=== PATIENT | male | born 1960 | race Caucasian/White ===

== ENCOUNTER 2019-12-28 12:45 | Day surgery (SDC) | payer BC, OTHER ==
[2019-12-25 14:11] LABS: HEMATOCRIT 41.6 % (42.0-54.0); HEMOGLOBIN 13.5 g/dL (13.5-17.5); MCH 30.7 pg (26.0-34.0); MCHC 32.5 g/dL (31.0-37.0); MCV 94.5 fL (80.0-100.0); RBC 4.4 10x6/uL (4.20-6.10); RDW 14.2 % (11.5-14.5); WBC 6.6 10x3/uL (4.8-10.8)
[~2019-12-28] VITALS: Ht 190.5 cm; Wt 133.4 kg
[~2019-12-28 12:45] MED LIST: COREG6.25 MG PO; LEXAPRO10 MG PO; LISINOPRIL10 MG PO; OXYCONTIN10 MG PO; TORADOL10 MG PO
[2019-12-28 13:29] VITALS: BP 147/91; Ht 190.5 cm; Wt 133.4 kg
[2019-12-28] MEDS ORDERED: OXYCODONE HCL5 M1 PO (18:07)
--- NOTE | 2019-12-28 18:15 | NUR ---
1812 REVEIVED REPORT FROM Los MACKAY RN TAKING OVER CARE
--- NOTE | 2019-12-28 20:25 | NUR ---
1999 IV REMOVED AND INSTRUCTIONS GIVEN AND REVIEWED WITH PT, OSIRIS FAJARDO ON AMARJIT ORDERED WITH INSTRUCTIONS. PAIN AND NAUSEA TOLERABLE
--- NOTE | 2019-12-29 09:13 | OP ---
PATIENT NAME: RUPERTO YIP JR MEDICAL RECORD: [id number] :60 LOCATION:[facility] ADMISSION DATE: SURGEON: CHRISTOPHER DOOLEY DO DATE OF OPERATION: 12/28/2019 PROCEDURE PERFORMED: Left knee arthroscopy with partial medial meniscectomy, abrasion chondroplasty of patella. 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 INDICATIONS: Mr.Otis Yip is a 59-year-old male who presented to my office with an MRI, showing that both findings on x-ray, he did not appear to have much arthritis as he had a good joint space noted, but he had more meniscal symptoms. I informed him that I could help him with those, ____ meniscus, but he may need further surgery. He is also aware of risks of infection, bleeding, damage to nerves and vessels in the area and continued pain and recurrence of the meniscal tear. He is aware of all that and signed the consent. SURGEON: Christopher Dooley DO DESCRIPTION OF THE PROCEDURE: The patient was taken to the operative suite, laid in supine position, given general anesthetic, and LMA was placed. The left lower extremity was then prepped and draped in sterile fashion. Timeout was performed. Everyone was agreeance with correct side, site, patient and procedure. We then began by making the lateral portal with an 11-blade scalpel. Trocar was entered in the joint. The camera was entered into the joint. There is quite a bit of inflammation in there. The tissue was quite red in color. I did wash it a little and I inspected the suprapatellar area and there were no loose bodies seen. There is some cartilage floating around in the medial and lateral gutters. These were flushed out. I then looked to the medial compartment and established a medial portal with an 18-gauge spinal needle and an 11-blade scalpel and the trocar was brought in and probed. Probed the medial meniscus, it was torn, torn in the posterior horn. A biter and shaver was then brought in to trim it out to a stable point. I then inspected the ACL and it was again super inflamed as well as the rest of the soft tissue in the area and washed it. I then got the probe and parked it in the posterior lateral area of the notch and [id number] the knee, viewed the lateral meniscus and lateral cartilage. The lateral compartment was in good shape. I then brought the knee into an extension and brought in the shaver through the medial portal and an abrasion chondroplasty on the patella. This was also performed of the medial femoral condyle, excising any cartilage that was loose. I then turned the water off and suctioned. All the excess fluid was removed from the knee. I then closed the portal sites with 4-0 Monocryl in inverted interrupted fashion. Steri-Strips, Adaptic, 4 x 4's, ABD, Webril and Brett wrap were then placed on the knee. He was then awakened and taken to recovery in stable condition. ESTIMATED BLOOD LOSS: Minimal. COMPLICATIONS: None. TRANSINT:[id number] Voice Confirmation ID: [id number] DOCUMENT ID: [id number] OPERATIVE REPORT [id number] RUPERTO YIP JR, MICHAEL D, DO at 0913 CC: [id number] DICTATION DATE: 12/28/19 180 [employer]: 12/29/19 0124 [facility] 12/28/19 [facility] [address] [place] [address]
== END 2019-12-28 20:20 | disposition home or self-care (01) ==
LOC: D.OPS 12:45
PROVIDERS: Anesthesiology; ATTEND Orthopaedic Surgery
DX: S83.242A Other tear of medial meniscus, current injury, left knee, initial encounter (principal); M22.42 Chondromalacia patellae, left knee; X58.XXXA Exposure to other specified factors, initial encounter; J45.909 Unspecified asthma, uncomplicated